=== PATIENT | male | born 1975 | race Caucasian/White ===

== ENCOUNTER 2018-05-21 02:55 | Emergency (ER) | payer BC ==
[~2018-05-21] VITALS: Ht 185.4 cm; Wt 88.5 kg
--- NOTE | 2018-05-21 03:00 | NUR ---
Note sissy in EDM - 05/21/18 at 0333 by ANTOINE PT BIB HIS MOTHER WITH A C/O N/V/D SINCE YESTERDAY. PT APPEARS PALE. PT AMBULATED TO ER 17 WITH A STEADY GAIT. VSS.
--- NOTE | 2018-05-21 03:17 | NUR ---
PT UNABLE TO GIVE URINE SAMPLE AT THIS TIME. PT ALSO STATES HE VOMITTED WHILE IN THE RESTROOM.
--- NOTE | 2018-05-21 03:20 | NUR ---
BBSELF FROM HOME C/C LLQ ABD/PELVIC PAIN W/ INABILITY TO URINATE X4 HRS. SEEN 05/04, DX'ED W/ KIDNEY STONES. +DYSURIA, +HEMATURIA. +N/V,-D. SKIN WNL. MILD S/S OF ACUTE DISTRESS NOTED D/T ABD PAIN. RR EVEN AND UNLABORED. PT PLACED ON MONITOR AND POX. PT SAFETY AND COMFORT MEASURES IN PLACE. MD BEDSIDE FOR EVAL.
[2018-05-21] MEDS ORDERED: HYDROMORPHONE 1 MG/1 ML DISP.SYRIN ONE (03:23)
[2018-05-21] MEDS ORDERED: KETOROLAC TROMETHAMINE INJ 30 MG/ML VIAL ONE (03:23)
[2018-05-21] MEDS ORDERED: ONDANSETRON HCL/PF 4 MG/2 ML VIAL ONE (03:23)
[2018-05-21 03:35] LABS: BASOPHILS % (AUTO) 0.2 % (0.0-2.0); EOSINOPHILS % (AUTO) 0.1 % (0.0-6.0); HEMATOCRIT 45 % (39-51); HEMOGLOBIN 15.7 g/dL (13.5-17.5); LYMPHOCYTES # (AUTO) 0.8 /CMM (0.8-4.8); LYMPHOCYTES % (AUTO) 5.3 % (20.0-44.0); MEAN CORPUSCULAR HGB CONC 35 g/dl (31.0-36.0); MEAN CORPUSCULAR VOLUME 88 fL (80-96); MONOCYTES # (AUTO) 0.9 /CMM (0.1-1.30); MONOCYTES % (AUTO) 5.7 % (2.0-12.0); NEUTROPHILS # (AUTO) 14.2 /CMM (1.8-8.9); NEUTROPHILS % (AUTO) 88.7 % (43.0-81.0); PLATELET COUNT (AUTO) 229 /CMM (150-450); RED BLOOD CELL COUNT(AUTO) 5.15 MIL/uL (4.5-6.0)
[2018-05-21] MEDS: IV NS 0.9% 1,000 ML BAG IV ONE (03:35)
[2018-05-21] MEDS: HYDROMORPHONE INJ 2 MG/ML DISP.SYRIN IV ONE (03:35)
[2018-05-21] MEDS: KETOROLAC TROMETHAMINE INJ 30 MG/ML VIAL IV ONE (03:36)
[2018-05-21] MEDS: ONDANSETRON HCL/PF 4 MG/2 ML VIAL IVP ONE (03:36)
[2018-05-21] MEDS ORDERED: LIDOCAINE 2% JEL UROJET 10 ML MM ONE (03:38)
[2018-05-21 03:47] LABS: ALBUMIN 4.3 g/dL (3.4-5.0); BILIRUBIN,DIRECT 0.1 mg/dL (0.0-0.2); BILIRUBIN,TOTAL 0.7 mg/dL (0.2-1.0); CALCIUM, SERUM 9.4 mg/dL (8.5-10.1); CREATININE 1.6 mg/dL (0.6-1.3); POTASSIUM 4.1 mmol/L (3.5-5.1); TOTAL PROTEIN, SERUM 7.7 g/dL (6.4-8.2)
--- NOTE | 2018-05-21 03:52 | NUR ---
LIGHTOUT EXAMINER BEDSIDE
[2018-05-21] MEDS: TAMSULOSIN 0.4 MG CAP.SR.24H PO ONE (03:53)
[2018-05-21 05:24] LABS: APPEARANCE,URINE CLOUDY (CLEAR); BILIRUBIN,URINE 2+ (NEGATIVE); BLOOD, URINE 3+ Ery/uL (NEGATIVE); COLOR,URINE BROWN (YELLOW); KETONES,URINE 1+ (NEGATIVE); LEUKOCYTE ESTERASE ,URINE TRACE (NEGATIVE); NITRITE, URINE POSITIVE (NEGATIVE); PH,URINE 6.5 (5.0-8.0); PROTEIN,URINE 3+ mg/dl (NEGATIVE); UGLUCOSE NEGATIVE (NEGATIVE)
[2018-05-21 05:29] LABS: RBC,URINE TOO NUMEROUS TO COUN /HPF (0-2)
[2018-05-21 05:30] LABS: BACTERIA,URINE Few /HPF (None Seen); SQUAMOUS EPITHELIAL CELL,UR Rare /HPF (None Seen)
--- NOTE | 2018-05-21 05:42 | NUR ---
MD BEDSIDE SPEAKING TO PT REGARDING RESULTS .
--- NOTE | 2018-05-21 06:05 | NUR ---
Patient discharged to home in stable condition. Written and verbal after care instructions given. Patient verbalizes understanding of instruction.IV removed. Catheter intact and site benign. Pressure and 4x4 applied to site. No bleeding noted.
[2018-05-21 06:06] VITALS: BP 103/57
== END 2018-05-21 06:06 | disposition home or self-care (01) ==
LOC: ER 02:58
DX: N20.0 Calculus of kidney (principal); R31.9 Hematuria, unspecified
CPT/HCPCS: 36415; 76770-TC; 80048-TC; 80076-TC; 81000-TC; 83690-TC; 85025-TC; 87086-TC; A4606; J1170; J1885; J2405; J3490; J7030; Z7610